=== PATIENT | male | born 1970 | race Caucasian/White ===

== ENCOUNTER 2016-09-29 19:53 | Observation (INO) | payer OTHER ==
[2016-09-29] MEDS ORDERED: NS 1,000 ML IV ONE (20:17)
[2016-09-29] MEDS ORDERED: ACETAMINOPHEN 500 MG TAB PO ONE (20:17)
--- NOTE | 2016-09-29 20:22 | EDPHY ---
H & P Smoking Status: Former smoker Time Seen by Provider: 09/29/16 20:08 HPI/ROS: HPI Fever. History of non-Hodgkin's lymphoma. 45-year-old male by private vehicle with his . This patient has a history of non-Hodgkin's lymphoma. He finished chemotherapy 3 weeks ago. He is currently under the care of oncologist Dr. Dubon. He reports that he had a mild fever on Friday afternoon but this went away. He reports that the fever came back again this evening and was 103 at home. He has a Port-A-Cath. This was last accessed in mid May. He denies any other new associated signs or symptoms. ROS: Constitutional: As above, no chills. No weakness. Eyes: No discharge. No changes in vision. ENT: No sore throat. No nasal congestion or rhinorrhea. Respiratory: No cough. No shortness of breath. Cardiac: No chest pain, no palpitations. Gastrointestinal: No abdominal pain, no vomiting, no diarrhea. Genitourinary: No hematuria. No dysuria or increased frequency with urination. Musculoskeletal: No back pain. No neck pain. No myalgias or arthralgias. Skin: No rashes. Neurological: No headache. No focal weakness or altered sensation. Past medical history: Diffuse large B-cell lymphoma. Tachycardia. As above. He is currently on a fentanyl patch and oxycodone for pain. Last chemotherapy was 3 weeks ago. No radiation therapy. Social history: Here with his . Nonsmoker. Physical Exam: General Appearance: Alert, no distress. This patient is responding to questions appropriately and in full sentences. This patient appears well- hydrated and well-nourished. Eyes: Pupils equal and round no pallor or injection. No lid edema, erythema or injection. ENT, Mouth: Mucous membranes are moist. The pharyngeal tissues are unremarkable. No edema or swelling. No asymmetry suggestive of abscess. No erythema or exudates. Respiratory: There are no retractions, lungs are clear to auscultation with good air movement bilaterally. Port-A-Cath site is without evidence of infection. Cardiovascular: Regular rate and rhythm. Tachycardic. No murmur. Gastrointestinal: Abdomen is soft and nontender, no masses, bowel sounds normal. No focal tenderness at McBurney's point. No Goddard sign. Neurological: Motor sensory function is grossly intact. Cranial nerves are normal. Gait is normal. Skin: Warm and dry, no rashes. Musculoskeletal: Neck is supple and nontender. No pain on flexion of the neck. Extremities are symmetrical. All joints range without pain or impingement. Psychiatric: No agitation. No depression. Database: EKG: Imaging: Chest x-ray PA and lateral; the cardiac mediastinal silhouette is unremarkable. No evidence of infiltrate or pneumothorax. New left basilar atelectasis. No acute cardiopulmonary disease process noted. Interpreted by me. Procedures: Emergency department course: IV placed. He was placed on a signal manager. He was started on IV normal saline with 1 L to be given over the next hour. He was given 1 g of Tylenol orally. Sepsis protocol initiated. Vital signs reviewed. Initial temperature 39.4 oral, pulse oximetry on room air is 80%, heart rate 135. 8:50 p.m., case discussed with hospitalist Dr. Marion. He has accepted the patient for admission. We will start the patient IV cefepime in the emergency department. This was discussed with Dr. robles. The patient is noted not to be neutropenic. 9:05 p.m., patient re-evaluated. Resting comfortably at this time. No complaints. Vital signs reviewed. Blood pressure 102/68, heart rate 114. Pulse oximetry 94% on 2 L by nasal cannula oxygen. Results of chest x-ray initial blood work discussed with him. Venous lactate pending, urine will be obtained now. Care will be turned over to Dr. Bolanos while the patient is in the emergency department. Differential Diagnosis: The differential diagnosis on this patient includes but is not limited to history of diffuse large B-cell lymphoma, history of recent chemotherapy, neutropenic fever, influenza, urinary tract infection, pneumonia. This represents a partial list of diagnoses considered. These considerations are based on history, physical exam, past history, reassessment and diagnostic testing. (Trinity Boudreaux) Constitutional: Initial Vital Signs Temperature (C) 39.4 C H 09/29/16 19:57 Heart Rate 133 H 09/29/16 19:57 Respiratory Rate 20 09/29/16 19:57 Blood Pressure 119/82 H 09/29/16 19:57 O2 Sat (%) 88 L 09/29/16 19:57 O2 Delivery Mode Room Air O2 (L/minute) 2 Allergies/Adverse Reactions: No Allergies [NKDA] Allergy (Verified 05/26/16 08:48) Home Medications: Medication Instructions Recorded Omeprazole [Prilosec 20 mg] 20 mg PO BID PRN 04/09/16 Prochlorperazine Maleate 10 mg PO Q6H PRN 05/12/16 [Compazine 10mg (*)] Zolpidem Tartrate [Ambien 10 mg] 10 mg PO HS 05/26/16 Acyclovir [Zovirax 400 mg (*)] 400 mg PO BID 09/29/16 Calcium Carbonate [Tums 500MG (*)] 500 - 1,000 mg PO DAILY PRN 09/29/16 HYDROcodone/APAP 10 [[place] 1 tab PO Q4 PRN 09/29/16 10325 (*)] Polyethylene Glycol 3350 [Miralax 17 gm PO Q2D 09/29/16 17 gm (*)] Sulfamethoxazole/Trimethoprim 1 each PO BIDMWF 09/29/16 [Bactrim 400-80 mg Tablet] fentaNYL [Duragesic 75 MCG Patch 75 mcg TD Q72H 09/29/16 (*)] Medical Decision Making Consult/Admit Bed Type: Hospitalist, admit med surge. ED Course/Re-evaluation: The patient was turned over to hi by Dr. Boudreaux at shift change. He presents to the ED with fever without source. The patient is currently receiving chemotherapy for a fairly refractory abdominal non-Hodgkin's lymphoma. Patient presents to the ED with a fever of 39.4. The patient reports his port was last access in the middle of May. The patient has not had a recent procedure. The patient denies diarrhea, skin rash, cough or congestion. The patient does have chronic tachycardia. The patient is noted not to be neutropenic. The patient's urinalysis is unremarkable as is his chest x-ray. The patient's flu swab is currently pending. Patient presents to the ED with fever to 39.4 without source. He also has tachycardia and fever which resulting in SIRS criteria. The patient did receive a dose of cefepime by Dr. Boudreaux. The patient will be admitted to the hospital for observation this evening tonight. He has no evidence of severe sepsis or septic shock. (Logan Bolanos) Differential Diagnosis: Differential diagnosis considered includes urinary tract infection, pneumonia, influenza, bacteremia, viral syndrome, sepsis, severe sepsis, septic shock ( Logan Bolanos) - Data Points Laboratory Results: Laboratory Results 09/29/16 20:15 09/29/16 20:15 09/29/16 09/29/16 20:15 06:29 Platelet Estimate DECREASED L (ADEQ) Polychromasia 2+ H Microcytic Cells 1+ H Oval Macrocytes 1+ H Schistocytes 1+ H Influenza A & B (PCR) NEGATIVE FOR FLU (NEGATIVE) Medications Given: Discontinued Medications Acetaminophen (Tylenol) 1,000 mg PO EDNOW ONE Stop: 09/29/16 20:18 Last Admin: 09/29/16 20:24 Dose: 1,000 mg Sodium Chloride (Ns) 1,000 mls @ 0 mls/hr IV ONCE ONE PRN Reason: Wide Open Stop: 09/29/16 20:18 Last Admin: 09/29/16 20:24 Dose: 1,000 mls Cefepime HCl 2 gm/ Dextrose 100 mls @ 200 mls/hr IV EDNOW ONE PRN Reason: Protocol Stop: 09/29/16 21:27 Last Admin: 09/29/16 21:31 Dose: 100 mls Departure - Departure Disposition: [facility] Acute Clinical Impression: History of lymphoma, History of chemotherapy, Fever, Tachycardia Condition: Fair
--- NOTE | 2016-09-29 20:42 | DX ---
PA and Lateral Chest September 29, 2016 20:05 Indication: 45-year-old man with history of lymphoma. Patient presents to the Emergency Room meeting sepsis criteria. Comparison: Portable chest dated March 19, 2016 Findings: A right anterior chest wall port is unchanged in position with the tip in the superior vena cava. The left hemidiaphragm is asymmetrically elevated and new linear atelectasis has developed in the left base. The right lung is clear. No pulmonary edema or effusion. Heart size normal. An osteoph yte emanating off the right humeral head is unchanged. No bone lesions. Impression: New left basilar atelectasis. Otherwise clear.
[2016-09-29 20:49] LABS: % IMMATURE GRANULYOCYTES 0.5 % (0.0-1.1); ABSOLUTE IMMATURE GRANULOCYTES 0.04 10^3/uL (0.00-0.10); ABSOLUTE NRBC COUNT 0.03 10^3/uL (0-0.01); ADD DIFF? NO; ADD MORPH? YES; ADD SCAN? NO; ATYPICAL LYMPHOCYTE FLAG 0 (0-99); FRAGMENT RBC FLAG 20 (0-99); HEMATOCRIT 19.8 % (40.0-51.0); LEFT SHIFT FLG 0 (0-99); LIPEMIA HEMOLYSIS FLAG 90 (0-99); MEAN CELL HEMOGLOBIN 29.1 pg (27.9-34.1); MEAN CELL HEMOGLOBIN CONCENTR. 33.8 g/dL (32.4-36.7); MEAN CELL VOLUME 86.1 fL (81.5-99.8); MEAN PLATELET VOLUME 11.1 fL (8.7-11.7); NRBC-AUTO% 0.4 % (0.0-0.2); PLATELET CLUMPS FLAG 20 (0-99); PLATELET COUNT 107 10^3/uL (150-400); RED CELL DISTRIBUTION WIDTH 19.2 % (11.5-15.2)
[2016-09-29 20:54] LABS: HEMOGLOBIN 6.7 g/dL (13.7-17.5)
[2016-09-29 20:58] LABS: ANION GAP 8 mEq/L (8-16); CALCIUM 8.8 mg/dL (8.5-10.4); CARBON DIOXIDE 28 mEq/l (22-31); CHLORIDE 100 mEq/L (97-110); GLOMERULAR FILTRATION RATE > 60; GLUCOSE 105 mg/dL (70-100); POTASSIUM 3.8 mEq/L (3.5-5.2); SODIUM 136 mEq/L (134-144)
[2016-09-29] MEDS ORDERED: CEFEPIME HCL 2 GM in D5W 100 ML IV ONE (20:58)
[2016-09-29 21:00] LABS: APTT 30.1 SEC (23.0-38.0); INR 1.12 (0.83-1.16); PROTIME(PATIENT) 14.3 SEC (12.0-15.0)
[2016-09-29 21:25] LABS: COLOR YELLOW; LEUKOCYTE ESTERASE,URINE NEGATIVE (NEGATIVE); NITRITE,URINE NEGATIVE (NEGATIVE)
[2016-09-29 21:27] LABS: MUCUS 1+ /lpf (NONE-1+)
[2016-09-29 21:28] LABS: PLATELET ESTIMATE DECREASED (ADEQ); POLYCHROMASIA 2+
[2016-09-29 21:32] LABS: MACROCYTES 1+; MICROCYTES 1+; SCHISTOCYTES 1+
[2016-09-29] MEDS ORDERED: ONDANSETRON DISINTEGRATING 4 MG TAB PO PRN (22:44)
[2016-09-29] MEDS ORDERED: ONDANSETRON 4 MG/2 ML VIAL IVP PRN (22:44)
[2016-09-29] MEDS ORDERED: PROCHLORPERAZINE MALEATE 10 MG TAB PO PRN (22:47)
[2016-09-29] MEDS ORDERED: CALCIUM CARBONATE 500 MG CHEWABLE TAB PO PRN (22:47)
[2016-09-29] MEDS ORDERED: PANTOPRAZOLE SODIUM 40 MG TAB PO PRN (22:47)
--- NOTE | 2016-09-29 22:52 | PDGENHP ---
History and Physical - Chief Complaint Acute fever - History of Present Illness Primary oncologist: Dr. Dubon HPI: 45-year-old male presents with acute fever characterized as a temperature of 103 degrees F with onset of symptoms on the afternoon of presentation and duration persistent thereafter. His fever was alleviated by Tylenol received in the emergency department. He reports that he had been experiencing associated subjective fever approximately 2 days prior to this occurrence. He otherwise denies any diarrhea, dysuria, headache. He does endorse that he intermittently experiences associated abdominal and chest pain located in the left lower chest radiating upwards towards his ribs, and this has been fairly intermittent but constant over the past several weeks to months. He has also noted some recent rhinorrhea as well as exertional shortness of breath. He denies any cough and denies any hematochezia or melena. This fall, the patient was diagnosed with superficial venous thrombosis, and he was initiated on aspirin. His aspirin discontinued several weeks ago in the setting of thrombocytopenia. History Information - Allergies/Home Medication List Allergies/Adverse Reactions: No Allergies [NKDA] Allergy (Verified 05/26/16 08:48) Home Medications: Omeprazole [Prilosec 20 mg] 20 mg PO BID PRN 04/09/16 [Last Taken 09/28/16 20:00 ] Prochlorperazine Maleate [Compazine 10mg (*)] 10 mg PO Q6H PRN 05/12/16 [Last Taken 05/09/16] Zolpidem Tartrate [Ambien 10 mg] 10 mg PO HS 05/26/16 [Last Taken 09/28/16 20:00 ] Acyclovir [Zovirax 400 mg (*)] 400 mg PO BID 09/29/16 [Last Taken 09/29/16 07:00 ] Calcium Carbonate [Tums 500MG (*)] 500 - 1,000 mg PO DAILY PRN 09/29/16 [Last Taken Unknown] HYDROcodone/APAP 10/325 [[place] 10/325 (*)] 1 tab PO Q4 PRN 09/29/16 [Last Taken 09/29/16 10:00] Polyethylene Glycol 3350 [Miralax 17 gm (*)] 17 gm PO Q2D 09/29/16 [Last Taken 09/28/16 07:00] Sulfamethoxazole/Trimethoprim [Bactrim 400-80 mg Tablet] 1 each PO BIDMWF [Last Taken 09/27/16] fentaNYL [Duragesic 75 MCG Patch (*)] 75 mcg TD Q72H 09/29/16 [Last Taken ] I have personally reviewed and updated: family history, medical history, social history, surgical history - Past Medical History Additional medical history: Diffuse large B-cell lymphoma, status post RICE chemotherapy, most recent 3 weeks ago; superficial venous thrombosis left lower extremity; chronic pain with continuous opiate dependency - Surgical History Additional surgical history: Right shoulder - Family History Additional family history: Father with melanoma, mother with breast cancer, no family history of VTE - Social History Smoking Status: Former smoker Alcohol Use: None Drug Use: None Additional social history: Normally independent in his ADLs Review of Systems ROS: 10pt was reviewed & negative except for what was stated in HPI & below Constitutional: Reports: fever EENMT: Reports: nose congestion Cardiac: Reports: chest pain Physical Exam Temp Pulse Resp BP Pulse Ox 39.2 C H 114 H 16 102/68 94 09/29/16 22:01 09/29/16 22:01 09/29/16 22:01 09/29/16 22:01 09/29/16 22:01 O2 (L/minute) 2 Constitutional: no apparent distress, appears nourished, not in pain, No uncomfortable Eyes: PERRL, anicteric sclera, EOMI Ears, Nose, Mouth, Throat: moist mucous membranes, hearing normal, ears appear normal, no oral mucosal ulcers Cardiovascular: tachycardia, No systolic murmur, No irregularly irregular, No edema Respiratory: no respiratory distress, no rales or rhonchi, reduced air movement (Left base on inspiration), No expiratory wheeze, No bronchial breath sounds, No respiratory distress Gastrointestinal: normoactive bowel sounds, soft, non-tender abdomen, no palpable masses, No distension Skin: warm, normal color, no rashes or abrasions, no fluctuance, no induration, No mottled Musculoskeletal: other (No tenderness to palpation over the left intercostal muscles, full range of motion left shoulder without any pain) Neurologic: AAOx3, sensation intact bilaterally, No weakness Psychiatric: interacting appropriately, not anxious, not encephalopathic, thought process linear Lab Data & Imaging Review 09/29/16 20:15 09/29/16 20:15 WBC 7.68 10^3/uL (3.80-9.50) 09/29/16 20:15 RBC 2.30 10^6/uL (4.40-6.38) L 09/29/16 20:15 Hgb 6.7 g/dL (13.7-17.5) L 09/29/16 20:15 Hct 19.8 % (40.0-51.0) L 09/29/16 20:15 MCV 86.1 fL (81.5-99.8) 09/29/16 20:15 MCH 29.1 pg (27.9-34.1) 09/29/16 20:15 MCHC 33.8 g/dL (32.4-36.7) 09/29/16 20:15 RDW 19.2 % (11.5-15.2) H 09/29/16 20:15 Plt Count 107 10^3/uL (150-400) L 09/29/16 20:15 MPV 11.1 fL (8.7-11.7) 09/29/16 20:15 Neut % (Auto) 78.5 % (39.3-74.2) H 09/29/16 20:15 Lymph % (Auto) 7.7 % (15.0-45.0) L 09/29/16 20:15 [place] % (Auto) 13.2 % (4.5-13.0) H 09/29/16 20:15 Eos % (Auto) 0.0 % (0.6-7.6) L 09/29/16 20:15 Baso % (Auto) 0.1 % (0.3-1.7) L 09/29/16 20:15 Nucleat RBC Rel Count 0.4 % (0.0-0.2) H 09/29/16 20:15 Absolute Neuts (auto) 6.03 10^3/uL (1.70-6.50) 09/29/16 20:15 Absolute Lymphs (auto) 0.59 10^3/uL (1.00-3.00) L 09/29/16 20:15 Absolute Monos (auto) 1.01 10^3/uL (0.30-0.80) H 09/29/16 20:15 Absolute Eos (auto) 0.00 10^3/uL (0.03-0.40) L 09/29/16 20:15 Absolute Basos (auto) 0.01 10^3/uL (0.02-0.10) L 09/29/16 20:15 Absolute Nucleated RBC 0.03 10^3/uL (0-0.01) H 09/29/16 20:15 Immature Gran % 0.5 % (0.0-1.1) 09/29/16 20:15 Immature Gran # 0.04 10^3/uL (0.00-0.10) 09/29/16 20:15 Platelet Estimate DECREASED (ADEQ) L 09/29/16 20:15 Polychromasia 2+ H 09/29/16 20:15 Microcytic Cells 1+ H 09/29/16 20:15 Oval Macrocytes 1+ H 09/29/16 20:15 Schistocytes 1+ H 09/29/16 20:15 PT 14.3 SEC (12.0-15.0) 09/29/16 20:15 INR 1.12 (0.83-1.16) 09/29/16 20:15 APTT 30.1 SEC (23.0-38.0) 09/29/16 20:15 Sodium 136 mEq/L (134-144) 09/29/16 20:15 Potassium 3.8 mEq/L (3.5-5.2) 09/29/16 20:15 Chloride 100 mEq/L (97-110) 09/29/16 20:15 Carbon Dioxide 28 mEq/l (22-31) 09/29/16 20:15 Anion Gap 8 mEq/L (8-16) 09/29/16 20:15 BUN 9 mg/dL (7-23) 09/29/16 20:15 Creatinine 1.0 mg/dL (0.7-1.3) 09/29/16 20:15 Estimated GFR > 60 09/29/16 20:15 Glucose 105 mg/dL (70-100) H 09/29/16 20:15 Calcium 8.8 mg/dL (8.5-10.4) 09/29/16 20:15 Total Bilirubin 1.0 mg/dL (0.1-1.4) 09/29/16 20:15 Urine Color YELLOW 09/29/16 21:10 Urine Appearance HAZY 09/29/16 21:10 Urine pH 5.0 (5.0-7.5) 09/29/16 21:10 Ur Specific [place] 1.019 (1.002-1.030) 09/29/16 21:10 Urine Protein 1+ (NEGATIVE) H 09/29/16 21:10 Urine Ketones NEGATIVE (NEGATIVE) 09/29/16 21:10 Urine Blood NEGATIVE (NEGATIVE) 09/29/16 21:10 Urine Nitrate NEGATIVE (NEGATIVE) 09/29/16 21:10 Urine Bilirubin NEGATIVE (NEGATIVE) 09/29/16 21:10 Urine Urobilinogen NEGATIVE EU (0.2-1.0) 09/29/16 21:10 Ur Leukocyte Esterase NEGATIVE (NEGATIVE) 09/29/16 21:10 Urine RBC 1-3 /hpf (0-3) 09/29/16 21:10 Urine WBC 1-3 /hpf (0-3) 09/29/16 21:10 Ur Epithelial Cells TRACE /lpf (NONE-1+) 09/29/16 21:10 Urine Mucus 1+ /lpf (NONE-1+) 09/29/16 21:10 Ur Culture Indicated? NOT INDICATED (NI) 09/29/16 21:10 Urine Glucose NEGATIVE (NEGATIVE) 09/29/16 21:10 Influenza Typ A,B (DFA) NEGATIVE FOR FLU (NEGATIVE) 09/29/16 21:10 Visualized and Interpreted Chest x-ray results: Yes Chest X-Ray results: other (Left lower lobe atelectasis, no focal infiltrate) Assessment & Plan Assessment: 45-year-old male presents with systemic inflammatory response syndrome in the setting of diffuse large B-cell lymphoma Plan: 1. Systemic inflammatory response syndrome. Acute, new problem this provider, further workup indicated. Evidenced by tachycardia and fever without clear source of infection -given his underlying diffuse large B-cell lymphoma and superficial venous thrombosis without any anticoagulation, consider PE and get CT angiogram at this time -this could certainly be secondary to a viral precipitant, get influenza PCR -if patient localizes any other infectious symptoms, workup further -status post 1 L normal saline in the emergency department, continue normal saline with supplemental potassium at 150 cc/hour -get EKG to ensure the patient is not in atrial fibrillation -send TSH level -status post cefepime in the emergency department, will hold on further antibiotics unless clear evidence of infection is noted or patient is persistently febrile -p.r.n. Tylenol now the blood cultures have been drawn 2. Diffuse large B-cell lymphoma. Status post RICE therapy, most recent 3 weeks ago -reviewed outside records including labs from 09/17/2016 when patient was neutropenic with an ANC of less than 500, no longer neutropenic -reviewed outside staging including 09/12/2016 CT of the chest abdomen pelvis from [facility] demonstrating left proximal humerus bony invasion with reduction in the size of his mesenteric mass as well as left kidney mass with concomitant constipation -will consult with Oncology in the a.m. to ensure that they are aware of his presentation 3. Chronic pain with continuous opiate dependency. Continue on fentanyl patch as well as [place] as needed and MiraLax every other day 4. Pancytopenia. Secondary to chemotherapy, patient's tachycardia may be related to his anemia but he currently has no evidence of acute blood loss -will repeat serum hemoglobin level in a.m. and transfuse if down trending, will require washout irradiated products Diet. Regular Prophylaxis. High risk patient, Lovenox 40 Code. Full, his girlfriend Niya is MPOA Disposition. Anticipated discharge is 09/30/16, pending further workup as outlined above. If patient requires greater than 48 hours hospitalization for ongoing treatment or clinical decompensation of his current state, then he will be upgraded to inpatient admission status. I have discussed the patient's presentation with Dr. Logan Bolanos in the emergency department, he reports to me that the patient was in a sinus tachycardia on emergency department telemetry monitoring and we believe that he is safe for care on [address] [place] [address].
[2016-09-29] MEDS ORDERED: IOPAMIDOL (ISOVUE 370) 100 ML BTL IV ONE (22:55)
[2016-09-29] MEDS: ACYCLOVIR 400 MG TAB PO SCH (23:27)
[2016-09-29] MEDS: NS W/ 20 KCl/L 1,000 ML IV SCH (23:27)
[2016-09-29] MEDS: ZOLPIDEM TARTRATE 5 MG TAB PO SCH (23:27)
--- NOTE | 2016-09-29 23:35 | CPEKG ---
Heart Rate: 97 RR Interval: 619 P-R Interval: 160 QRSD Interval: 98 QT Interval: 364 QTC Interval: 463 P [place]: 22 QRS [place]: -41 T Wave [place]: 3 EKG Severity - ABNORMAL ECG - EKG Impression: SINUS RHYTHM EKG Impression: LEFT ANTERIOR FASCICULAR BLOCK Electronically Signed By: Daniele Regalado 30-Sep-2016 15:44:42
--- NOTE | 2016-09-29 23:48 | CT ---
CT Chest Angiogram September 29, 2016 23:17 Indication: Pain. Evaluate for pulmonary embolism, left lower lobe pneumonia, and pathologic rib fra ctures. Technique: Thinly collimated multidetector helical CT imaging was performed through the chest while 80 mL of Isovue-370 were injected intravenously without complication. The images were then transferr ed to an independent workstation where multiplanar reconstructions were performed. Dose reduction jazmin hniques were utilized. Comparison: CT of the chest, abdomen, and pelvis from [facility] ED dated August 29, 2016 Findings: CT Chest Angiogram: The pulmonary arterial system is well opacified. No intraluminal filling defect s to suggest acute or chronic thrombopulmonary embolic disease. The thoracic aorta is normal caliber . No aneurysm or dissection. CT Chest: Numerous enlarged partially calcified lymph nodes throughout the mediastinum, pulmonary hil a, and subcarinal wandy stations are all unchanged. No new enlarged lymph node or mass has developed. No pleural effusion. Left lower lobe atelectasis and asymmetric elevation left hemidiaphragm is new since August 2016. No edema or confluent airspace consolidation. Central airway is clear. Numerous 5 mm calcified and noncalcified subpleural nodules in the right and left lung apex are unchanged. No lytic or blastic pathologic bone lesion. No acute fracture. No compression deformity. The heart size is normal. No pericardial effusion. The right anterior chest wall port is present with the tip in the superior vena cava. The infiltrative subdiaphragmatic mass, posterior and inferior to the pancreatic tail and spleen, has increased in size since August 2016. For example, the mass on the lowest image measures 11 x 12 cm (previously 11 x 7 cm). Impression: 1. No evidence of thrombopulmonary embolic disease. 2. New left basilar atelectasis. No confluent pneumonia or edema. 3. No fracture or pathologic bone lesion. 4. Increasing in size left retroperitoneal mass is partially imaged.
[2016-09-30] MEDS: ACETAMINOPHEN 500 MG TAB PO PRN ×2 (05:33→15:42)
[2016-09-30 05:37] LABS: % IMMATURE GRANULYOCYTES 0.5 % (0.0-1.1); ABSOLUTE IMMATURE GRANULOCYTES 0.04 10^3/uL (0.00-0.10); ADD DIFF? NO; ADD MORPH? YES; ADD SCAN? NO; ATYPICAL LYMPHOCYTE FLAG 20 (0-99); FRAGMENT RBC FLAG 20 (0-99); HEMATOCRIT 19.6 % (40.0-51.0); LEFT SHIFT FLG 0 (0-99); LIPEMIA HEMOLYSIS FLAG 80 (0-99); MEAN CELL HEMOGLOBIN 29.4 pg (27.9-34.1); MEAN CELL HEMOGLOBIN CONCENTR. 33.2 g/dL (32.4-36.7); MEAN CELL VOLUME 88.7 fL (81.5-99.8); MEAN PLATELET VOLUME 10.7 fL (8.7-11.7); PLATELET CLUMPS FLAG 0 (0-99); PLATELET COUNT 107 10^3/uL (150-400); RED BLOOD CELL COUNT 2.21 10^6/uL (4.40-6.38); RED CELL DISTRIBUTION WIDTH 19.9 % (11.5-15.2)
[2016-09-30 05:43] LABS: HEMOGLOBIN 6.5 g/dL (13.7-17.5)
[2016-09-30] MEDS: HYDROCODONE/APAP 10/325 TAB PO PRN ×2 (06:03→16:42)
[2016-09-30 06:04] LABS: ALANINE AMINOTRANSFERASE 45 IU/L (21-72); ALBUMIN 2.9 g/dL (3.5-5.0); ALKALINE PHOSPHATASE 164 IU/L (38-126); ANION GAP 9 mEq/L (8-16); ASPARTATE AMINOTRANSFERASE 34 IU/L (17-59); BILIRUBIN,TOTAL 0.9 mg/dL (0.1-1.4); CALCIUM 7.9 mg/dL (8.5-10.4); CARBON DIOXIDE 26 mEq/l (22-31); CHLORIDE 105 mEq/L (97-110); CREATININE 0.9 mg/dL (0.7-1.3); GLOMERULAR FILTRATION RATE > 60; GLUCOSE 87 mg/dL (70-100); MAGNESIUM 1.9 mg/dL (1.6-2.3); POTASSIUM 4.2 mEq/L (3.5-5.2); SODIUM 140 mEq/L (134-144); TOTAL PROTEIN 5.2 g/dL (6.3-8.2)
[2016-09-30] MEDS: NS W/ 20 KCl/L 1,000 ML IV SCH ×2 (06:04→15:58)
[2016-09-30 06:09] LABS: TROPONIN I < 0.012 ng/mL (0-0.034)
[2016-09-30 06:23] LABS: MACROCYTES 1+; MICROCYTES 1+; PLATELET ESTIMATE DECREASED (ADEQ); SCHISTOCYTES 1+
[2016-09-30 06:24] LABS: POLYCHROMASIA 2+
[2016-09-30] MEDS: SULFAMETHOX/TMP 400/80 MG 1 TAB PO SCH ×2 (08:35→20:23)
[2016-09-30] MEDS: ACYCLOVIR 400 MG TAB PO SCH ×2 (08:35→20:24)
[2016-09-30] MEDS ORDERED: fentaNYL 75 MCG PATCH TD SCH (09:00)
[2016-09-30] MEDS: ENOXAPARIN 40 MG/0.4 ML SYR SC SCH (12:13)
--- NOTE | 2016-09-30 12:37 | HOSPPROG ---
Hospitalist Progress Note Assessment/Plan: 45-year-old man with a history diffuse large B-cell lymphoma presents with acute fevers greater than 103. He has noted low-grade fevers over the course of his lymphoma. Over the weekend he experience increased fevers to 39.3. He denies any associated symptoms with this that were unusual he does not feel toxic and his energy level has been stable. # FUO in the setting of lymphoma. Possible be like symptoms. No obvious infection noted at this time. Blood cultures are pending. Evaluation so far include CT angiogram of the chest which is negative for thromboembolic disease or pneumonia his urinalysis is clear his abdomen is fairly benign. * Discussed in detail with Dr. Quezada from Oncology * Plan to start him on Levaquin continue post discharge * And DC tomorrow if he continues to feel well. # DLBCL: Followed by Dr. Dubon as an outpatient and plans on traveling to [facility] for a consult on Friday for T-cell activation/ immunotherapy for his lymphoma. (CAR-T therapy) * Plan DC tomorrow on oral Levaquin if he continues to do well. Subjective: Patient new to me, chart reviewed. Feels well this morning. Does not feel particularly bad when he does have a fever. No cough no chest pain no shortness of breath no new abdominal complaints no urinary symptoms no diarrhea no rash Objective: Vital Signs Temp Pulse Resp BP Pulse Ox 36.9 C 101 H 16 109/72 97 09/30/16 10:37 09/30/16 10:37 09/30/16 10:37 09/30/16 10:37 09/30/16 10:37 Laboratory Results 09/30/16 05:03 09/30/16 05:03 09/29/16 09/30/16 10/01/16 05:59 05:59 05:59 Intake Total 1600 1000 Balance 1600 1000 PT 14.3 SEC (12.0-15.0) 09/29/16 20:15 INR 1.12 (0.83-1.16) 09/29/16 20:15 - Physical Exam Constitutional: no apparent distress Eyes: PERRL, EOMI Ears, Nose, Mouth, Throat: moist mucous membranes, hearing normal Cardiovascular: regular rate and rhythym, no murmur, rub, or gallop Respiratory: no respiratory distress, no rales or rhonchi, clear to auscultation Gastrointestinal: normoactive bowel sounds, tenderness (mild), No guarding, No rebound, No distension Genitourinary: No castañeda in urethra Skin: warm, normal color Musculoskeletal: no joint effusions Neurologic: AAOx3, sensation intact bilaterally, No numbness Psychiatric: interacting appropriately, not anxious, not encephalopathic ICD10 Worksheet Patient Problems: Problems Problem Status Diagnosed Fever Acute History of lymphoma Acute Tachycardia Acute Dehydration Acute Diarrhea Acute Leukocytosis Acute Non-Hodgkin lymphoma Acute
--- NOTE | 2016-09-30 12:49 | GCON ---
[f rep st] CONSULTATION HEMATOLOGY/ONCOLOGY CONSULTATION DATE OF CONSULTATION: 09/30/2016 REASON FOR CONSULTATION: This is a 45-year-old male with recurrent, diffuse, large-cell B-cell lymph dash who was admitted via the emergency department at [facility] last evening with a f ever to 103 prior to admission. He has a refractory large-cell B-cell lymphoma and is undergoing the rapy. HISTORY OF PRESENT ILLNESS: This patient is a 45-year-old white male whose initially non-Hodgkin lym phoma was diagnosed on 06/01/2015 with stage IIIA disease. His disease is CD-20 antigen positive and CD-30 antigen positive. His initial treatment was with R-CHOP plus brentuximab/vedotin. This therapy was started on 2014 and continued for 6 cycles through 10/03/2015. The patient had documented relapse requiri ng 2nd line treatment with Rituxan/GDP (gemcitabine, dexamethasone, and cisplatin) chemotherapy as of February of 2016. He obtained a partial response with this. Additional therapy was contemplated with a llo stem cell and autologous stem cell, but the patient was felt not to have achieved an adequate res ponse. He also received a clinical trial at our [facility] with antibiotic drug conjugate and m ost recently, has had 3 cycles of R-ICE chemotherapy. He has had no further infectious complication through his course of treatment and has had no disease- related fevers. He is admitted via the emergency department for his 1st fever though he was not, in fact, neutropenic. PAST MEDICAL HISTORY: The patient's prior medical history is relatively unremarkable. ALLERGIES: There are no known allergies. MEDICATIONS: At home include omeprazole, Compazine, Ambien. Acyclovir 400 mg b.i.d. at prophylaxis. Bactrim DS 1 tablet twice daily Friday, Friday, Friday as prophylaxis. Calcium carbonate, [place] , MiraLAX, and fentanyl. PAST SURGICAL HISTORY: Aside from MediPort placement includes right shoulder surgery. FAMILY HISTORY: There is a family history of father with melanoma, mother with breast cancer. SOCIAL HISTORY: He resides with his girlfriend. He is a former tobacco user. He does not use signi ficant amounts of alcohol or recreational drugs. No known exposure history. 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 PHYSICAL EXAMINATION: GENERAL: This is a pleasant, middle-aged, white male who looks pale but in no acute distress. VITAL SIGNS: His temperature did get up to 102 as noted. He is afebrile currently . Pulse 90s, respiratory rate 18, blood pressure stable. HEENT: No facial asymmetry. The skin is pale. Sclerae are anicteric. Oral mucosa intact. NECK: No adenopathy. LUNGS: Holl[place] clear. CARD IAC: Regular rhythm without S3 or S4. CHEST: MediPort nontender. ABDOMEN: Soft without masses, a scites, or HSM. EXTREMITIES: No peripheral edema. Skin intact. LABORATORY DATA: White count 7.77 today with a hemoglobin of 6.5, hematocrit of 19.6, MCV of 88.7, a nd platelet count of 107,000. His ANC is 5.88. PT 14.3, APPT 30. Sodium 140, potassium 4.2, BUN 9, creatinine 0.9, CO2 26, glucose 87. Magnesium 1.9. Alkaline phosphatase 164, albumin 2.9. Urinaly sis: Negative. Chest x-ray shows no infiltrate. IMPRESSION: 1. Fever in a nonneutropenic host without obvious source and without known fevers related to underly ing lymphoma. 2. Diffuse large-cell B-cell lymphoma, germinal center subtype. Being considered for additional cli nical trial therapy at the [facility] if clinically stable. 3. Myelosuppression secondary to lymphoma and its treatment. PLAN: I think the patient should be placed on empiric Levaquin antibiotic with the possibility of di scharge early on October 01, to allow him to travel to the [facility] tomorrow, October 01, for an appointment for additional therapy at the [facility] on October 02. I have discussed this with the patient, and he is comfo rtable with this plan as of this morning. I have also discussed this with the hospital staff. The patient could have positive blood cultures, and I think he should be kept in the hospital to anastasiya tor his overall course. Our service will follow, and I have indicated, in our outpatient electronic record, of his hospitaliz ation. I have ordered the Levaquin to be administered IV today with the option of converting this to oral th erapy tomorrow. /[id number]/MODL
[2016-09-30] MEDS: POLYETHYLENE GLYCOL 3350 17 GM PKT PO SCH (17:00)
[2016-09-30] MEDS: ZOLPIDEM TARTRATE 5 MG TAB PO SCH (20:24)
[2016-10-01] MEDS: NS W/ 20 KCl/L 1,000 ML IV SCH (01:36)
[2016-10-01] MEDS: HYDROCODONE/APAP 10/325 TAB PO PRN (06:18)
[2016-10-01] MEDS: POLYETHYLENE GLYCOL 3350 17 GM PKT PO SCH (06:25)
[2016-10-01 06:31] LABS: % IMMATURE GRANULYOCYTES 0.6 % (0.0-1.1); ABSOLUTE IMMATURE GRANULOCYTES 0.04 10^3/uL (0.00-0.10); ADD DIFF? NO; ADD MORPH? YES; ADD SCAN? NO; ATYPICAL LYMPHOCYTE FLAG 0 (0-99); FRAGMENT RBC FLAG 20 (0-99); HEMATOCRIT 18.7 % (40.0-51.0); LEFT SHIFT FLG 0 (0-99); LIPEMIA HEMOLYSIS FLAG 80 (0-99); MEAN CELL HEMOGLOBIN 29.6 pg (27.9-34.1); MEAN CELL HEMOGLOBIN CONCENTR. 33.7 g/dL (32.4-36.7); MEAN CELL VOLUME 87.8 fL (81.5-99.8); MEAN PLATELET VOLUME 10.6 fL (8.7-11.7); PLATELET CLUMPS FLAG 0 (0-99); PLATELET COUNT 109 10^3/uL (150-400); RED BLOOD CELL COUNT 2.13 10^6/uL (4.40-6.38); RED CELL DISTRIBUTION WIDTH 19.1 % (11.5-15.2)
[2016-10-01 06:32] LABS: HEMOGLOBIN 6.3 g/dL (13.7-17.5)
[2016-10-01 07:05] LABS: HYPOCHROMIA 1+; MICROCYTES 2+; PLATELET ESTIMATE DECREASED (ADEQ); POLYCHROMASIA 2+
[2016-10-01 08:05] VITALS: RESP 18; O2SAT 95
--- NOTE | 2016-10-01 08:28 | SOAPPROG ---
SOAP Progress Note Assessment/Plan: Assessment: 1.) Fever of oncertain etiology- with normal WBC and Neutrophil count- situation allows oral antibiotics to continue with Levaquin 750 mg po QD, convert to po route this AM, and pt. has a one week Rx picked up at the pharmacy last evening, with instructions to complete this course of ABx. Was informed not to take Ondansetron with the levaquin ( due to interaction that could cause Qt prolongation). 2.) Anemia- due to Lymphoma and its Tx. To receive one unit of PRBCs before discharge today. 3.) Discharge planning- to be discharged today, to allow Cristóbal to keep appt. at [facility] tomorrow afternoon to be considered for new line to Tx as a clinical trial. May be best Tx opportunity for him, as he is aware. Plan: 1.) Transfuse remaining unit of PRBCs this AM. 2.) Convert levaquin to oral route this AM. 3.) Discharge as early as possible this AM, to allow car travel to [facility] this afternoon/this evening. 4.) D/W patient this AM. 5.) Continued support at [facility] with Dr. Dubon as is needed. 10/01/16 08:22 Subjective: Had lower Tmax overnight, with mild cough, no other new sx. Feels well, with anticipated discharge later today. Objective: VSS as noted here. Tmax 102.7 last night HEENT- anicteric, no oral lesions, skin pale. Neck- supple Chest- clear CVS- RSR, no extra HS ABD- soft, NT BS+, nondistended EXT- without edema, skin intact. Labs as noted here. Vital Signs Temp Pulse Resp BP Pulse Ox 36.8 C 112 H 18 115/89 H 95 10/01/16 08:04 10/01/16 08:04 10/01/16 08:04 10/01/16 08:04 10/01/16 08:04 Laboratory Results 10/01/16 06:10 09/30/16 05:03 09/30/16 10/01/16 10/02/16 05:59 05:59 05:59 Intake Total 1600 4060 1400 Balance 1600 4060 1400 PT 14.3 SEC (12.0-15.0) 01/08/17 20:15 INR 1.12 (0.83-1.16) 09/29/16 20:15 ICD10 Worksheet Patient Problems: Problems Problem Status Diagnosed Fever Acute History of lymphoma Acute Tachycardia Acute Dehydration Acute Diarrhea Acute Leukocytosis Acute Non-Hodgkin lymphoma Acute
[2016-10-01] MEDS ORDERED: POLYETHYLENE GLYCOL 3350 17 GM PKT PO SCH (09:00)
[2016-10-01] MEDS ORDERED: levOFLOXACIN ORAL 25 MG/ML 100 ML BOTTLE PO SCH (10:00)
[2016-10-01] MEDS: ENOXAPARIN 40 MG/0.4 ML SYR SC SCH (10:43)
[2016-10-01] MEDS: ACYCLOVIR 400 MG TAB PO SCH (10:43)
[2016-10-01 11:17] VITALS: BP 135/91; PULSE 104
[2016-10-01 11:18] VITALS: TEMP 98.5
--- NOTE | 2016-10-01 12:52 | GDS ---
[f rep st] DISCHARGE SUMMARY DIAGNOSES: 1. Diffuse large B-cell lymphoma status post RICE chemotherapy. 2. Anemia secondary to above, status post 2 units of packed red blood cells. 3. Fever of unknown origin. PROCEDURES DONE: CT angiogram of the chest showing no PE, no pneumonia. HOSPITAL COURSE: Mr. Simeon is a 45-year-old with diffuse large B-cell lymphoma who presents wit h elevated fever. He did not feel toxic. There were no localizing signs or symptoms of his fever, and he was monitored in the hospital. He did not have a white count. No source was ever located, and the patient was feeling fairly good throughout his stay. He was started on Levaquin prophylactically to continue until he follows up in [place], [place] for his oncology appointment there tomorrow. It is un clear if this fever is due to, but I suspect it is due to his B-cell lymphoma. His blood cultures rem ained negative throughout his stay. CONDITION ON DISCHARGE: Good. Vital signs are stable. T-max overnight was 38, although his temperatu re on admission was 39.3. He continues to be relatively asymptomatic except for some abdominal discom fort due to tumor burden. DISCHARGE MEDICATIONS: Please see discharge medication form. He was given a prescription for Levaqui n to continue until he follows up with Oncology. FOLLOWUP INSTRUCTIONS: He will be discharged today. The patient plans on driving to [place] for his on cology appointment tomorrow morning. Total time spent with patient on day of discharge and coordination of care is 35 . /[id number]/MODL
== END 2016-10-01 12:45 | disposition home or self-care (01) ==
LOC: INTOOBSV 20:56 → F1N 22:01
PROVIDERS: ADMIT Internal Medicine; ATTEND Internal Medicine
PROC: 30233N1 Transfusion of Nonautologous Red Blood Cells into Peripheral Vein, Percutaneous Approach (ICD-10-PCS; principal; 2016-09-29)
DX: R50.9 Fever, unspecified (principal); C85.90 Non-Hodgkin lymphoma, unspecified, unspecified site; G89.29 Other chronic pain; F11.20 Opioid dependence, uncomplicated; Z87.891 Personal history of nicotine dependence; D61.811 Other drug-induced pancytopenia; Z86.718 Personal history of other venous thrombosis and embolism
CPT/HCPCS: 71020; 71275; 93005; 96361; 96365; 99285; G0378; P9040; J0692; J1650; J1956; Q9967

== ENCOUNTER → 2017-01-30 | Outpatient (CLI) | payer OTHER ==
[~2017-01-30] MED LIST: NA BICARBONATE 50 MEQ/50 ML VIAL ONE
== END ==
LOC: FIMAGING 09:28
PROVIDERS: ATTEND Internal Medicine Hematology & Oncology
PROC: 0W9B3ZZ Drainage of Left Pleural Cavity, Percutaneous Approach (ICD-10-PCS; principal; 2017-01-30)
DX: J90 Pleural effusion, not elsewhere classified (principal)